=== PATIENT | female | born 1930 | race Caucasian/White ===

== ENCOUNTER 2019-04-18 14:00 | Emergency (ER) | payer MEDICARE ==
[~2019-04-18 14:00] MED LIST: Iopamidol 370 76% 100 ML VIAL ONE
[2019-04-18] MEDS ORDERED: Morphine 4 MG/ML VIAL ONE ×2 (14:50→16:10)
[2019-04-18 15:06] LABS: Anion Gap 12 mmol/L (10-20); BUN (Urea Nitrogen) 21 mg/dL (9.8-20.1); Calc. Creatinine Clearance 0 mL/min (70-130); Calcium 9.8 mg/dL (7.8-10.44); Carbon Dioxide 27 mmol/L (23-31); Chloride 102 mmol/L (98-107); Estimated GFR-MDRD 46; Glucose 89 mg/dL (83-110); Potassium 4.2 mmol/L (3.5-5.1); Sodium 137 mmol/L (136-145)
[2019-04-18 15:07] LABS: #Eosinphils 0.1 thou/uL (0.0-0.7); #Lymphocytes 1.4 thou/uL (1.20-3.40); #Monocytes 0.5 thou/uL (0.11-0.59); #Neutrophils 3.9 thou/uL (1.40-6.50); %Basophils 0.6 % (0.0-1.0); %Eosinophils 1.2 % (0.0-10.0); %Lymphocytes 23.6 % (21.0-51.0); %Monocytes 7.6 % (0.0-10.0); %Neutrophils 66.9 % (42.0-75.0); Hemoglobin 12.8 g/dL (12.0-16.0); Mean Corpuscular HGB CONC 33.1 g/dL (32.0-36.0); Mean Corpuscular Hemoglobin 31.1 pg (27.0-31.0); Mean Platelet Volume 6.5 fL (7.4-10.4); Platelet Count 133 thou/uL (130-400); RBC Distribution Width 12.2 % (11.5-14.5); Red Blood Cell (RBC) Count 4.11 mill/uL (4.20-5.40); White Blood Cell (WBC) Count 5.9 thou/uL (4.8-10.8)
--- NOTE | 2019-04-18 15:55 | CT ---
CT OF THE BRAIN WITHOUT CONTRAST: COMPARISON: None. HISTORY: Tripped and fell with head trauma. The patient complains of falling on the left side with pain. TECHNIQUE: Multiple contiguous axial images were obtained in a CT of the brain without contrast. FINDINGS: There are scattered hypodensities in the subcortical and periventricular white matter, likely seconda ry to small-vessel ischemic disease. No large confluent infarction is seen. There is no evidence of hydrocephalus, intracranial hemorrhage, or extraaxial fluid collection. Muco jeremy thickening is seen in the left maxillary sinus. The mastoid air cells are well aerated. IMPRESSION: No evidence of acute intracranial abnormality. POS: [facility]
--- NOTE | 2019-04-18 15:59 | CT ---
CT Chest Trauma W Con: 04/18/2019 2:37 PM CLINICAL INDICATION: Fall with chest pain. COMPARISON: None.. FINDINGS: Lung and Large Airways: There is mild right basilar atelectasis. No contusion, pleural effusion or pn eumothorax is demonstrated. Pleura: No effusion or mass. Vessels: There are scattered calcifications involving thoracic aorta and coronary arteries Heart: Normal appearing. No pericardial effusion.. Mediastinum and Evie: Normal. Chest Wall and Lower Neck: Normal. Upper Abdomen: Cholelithiasis. No additional acute abnormality is evident. Bones: There are DISH like changes involving the mid thoracic spine with diffuse osteopenia. No defin ite acute fracture or subluxation is evident. There is advanced disc degenerative disease at L1-L2. IMPRESSION: No acute traumatic injury involving the thorax. Cholelithiasis
== END 2019-04-18 16:25 | disposition home or self-care (01) ==
LOC: SCSER 14:00
DX: S20.212A Contusion of left front wall of thorax, initial encounter (principal); K21.9 Gastro-esophageal reflux disease without esophagitis; E78.5 Hyperlipidemia, unspecified; I10 Essential (primary) hypertension; F41.9 Anxiety disorder, unspecified; Z79.899 Other long term (current) drug therapy; Z79.82 Long term (current) use of aspirin; W19.XXXA Unspecified fall, initial encounter
CPT/HCPCS: 70450; 71260; 80048; 85025; 94799; 96374; 96376; J2270; Q9967

== ENCOUNTER 2019-08-07 08:35 | Outpatient (CLI) | payer MEDICARE ==
--- NOTE | 2019-08-07 09:49 | CT ---
CT ABDOMEN AND PELVIS WITH IV CONTRAST 08/07/2019 CLINICAL INFORMATION: Mid and lower abdominal pain for past 6 months. History of constipation. History of uterine cancer. COMPARISON: 03/27/2017. Technique: Multiple contiguous axial CT images are obtained through the abdomen and pelvis with IV contrast. Cor onal reformatted images are provided. FINDINGS: Lower Chest: There is mild atelectasis present at each lung base. Vessels: Vascular calcifications are seen in the coronary arteries as well as involving the visualize d thoracic and abdominal aorta and involving the iliac arteries. Abdomen: Portal vein:Patent Gallbladder: Gallbladder calculi are again seen. Liver: within normal limits. Spleen: within normal limits. Pancreas: within normal limits. Adrenals: within normal limits. Kidneys: within normal limits. Bowel: Normal caliber. Appendix: Where visualized is normal in caliber and has a normal sonographic appearance. However, the entire appendix is not visualized due to significant artifact within the pelvis secondary to bilateral total hip prostheses. Peritoneum: No ascites or free air; no fluid collection. Mesentery and Retroperitoneum: No enlarged mesenteric or retroperitoneal lymph nodes. Abdominal Wall: within normal limits. Pelvis: Reproductive Organs: Evidence of hysterectomy. Pelvis within normal limits. Bladder: Not well assessed due to significant streak artifact in the pelvis. Bones: Prominent degenerative changes are again seen in the spine. Bilateral total hip prostheses are seen. Screws within the acetabular component of the prosthesis on the right are noted to extend just posterior to the cortex involving the posterior wall of the acetabulum. IMPRESSION: 1. No acute findings are seen in the abdomen or pelvis. 2. Vascular calcifications. 3. Suboptimal evaluation of the pelvic structures secondary to significant streak artifact from bilat eral total hip prostheses. 4. Hysterectomy. 5. Cholelithiasis.
== END 2019-08-07 08:36 | disposition home or self-care (01) ==
LOC: SCSCT 08:35
PROVIDERS: ATTEND Physician Assistant Medical
DX: K59.09 Other constipation (principal); R10.30 Lower abdominal pain, unspecified; N39.44 Nocturnal enuresis; R11.0 Nausea; K80.20 Calculus of gallbladder without cholecystitis without obstruction; Z90.710 Acquired absence of both cervix and uterus
CPT/HCPCS: 74177